=== PATIENT | male | born 1955 | race Two or more races ===

== ENCOUNTER 2023-11-24 06:27 | Day surgery (SDC) | payer BC, SELFPAY ==
[2023-11-11 10:13] VITALS: BMI 29.1
[2023-11-11 10:59] LABS: Hematocrit 45.9 % (39.0-52.0); Hemoglobin 16.1 g/dL (13.0-18.0); Mean Corp Hgb Conc. 35.1 g/dL (33.0-37.0); Mean Corpuscular Volume 91.3 fL (80.0-94.0); Mean Platelet Volume 10.9 fL (7.4-10.4); Platelet Count 168 10^3/uL (130-400); Red Blood Cell Count 5.03 10^6/uL (4.70-6.10); Red Cell Dist. Width 12.4 % (11.5-14.5); White Blood Cell Count 5.9 10^3/uL (4.8-10.8)
[2023-11-11 11:23] LABS: Blood Urea Nitrogen 23 mg/dl (9-20); Calcium 9.6 mg/dl (8.4-10.2); Carbon Dioxide 32 mmol/L (22-30); Chloride 103 mmol/L (98-107); Estimated Creatinine Clearance 104 ml/min; Glucose 82 mg/dl (70-99); Sodium 138 mmol/L (135-145); eGFR > 60.00
[2023-11-24] VITALS (8 sets, daily range): BP systolic 108–121; BP diastolic 65–75; BMI 29.1
[2023-11-24] MEDS: TYLENOL 1000 MG PO (08:31)
[2023-11-24] MEDS: NORMOSOL-R 1000 IV (08:37)
[2023-11-24] MEDS: VANCOCIN 300 MG IV (09:47)
[2023-11-24] MEDS: VANCOCIN 300 ML IV (09:47)
== END 2023-11-24 14:37 | disposition home or self-care (01) ==
LOC: SDS 06:27
PROVIDERS: ATTENDING PHYSICIAN Surgery; FAMILY PHYSICIAN Family Medicine
DX: K40.30 Unilateral inguinal hernia, with obstruction, without gangrene, not specified as recurrent (principal); Z98.890 Other specified postprocedural states
CPT/HCPCS: 49650; 36415; 80048; 85027; 93005; C1781

== ENCOUNTER → 2024-05-10 14:52 | Outpatient (REF) | payer BC, SELFPAY | LOC: HWEVLT 14:52 | PROVIDERS: ATTENDING PHYSICIAN Radiology Vascular & Interventional Radiology | DX: I83.893 Varicose veins of bilateral lower extremities with other complications (principal) | CPT/HCPCS: 93970 ==

== ENCOUNTER → 2024-06-21 09:34 | Outpatient (REF) | payer BC, SELFPAY | LOC: HWEVLT 09:34 | PROVIDERS: ATTENDING PHYSICIAN Radiology Diagnostic Radiology | DX: I83.892 Varicose veins of left lower extremity with other complications (principal) | CPT/HCPCS: 36478; C1769 ==

== ENCOUNTER → 2024-07-04 14:44 | Outpatient (REF) | payer BC, SELFPAY | LOC: HWEVLT 14:44 | PROVIDERS: ATTENDING PHYSICIAN Radiology Vascular & Interventional Radiology | DX: I83.892 Varicose veins of left lower extremity with other complications (principal) | CPT/HCPCS: 93971 ==

== ENCOUNTER → 2024-07-12 09:12 | Outpatient (REF) | payer BC, SELFPAY | LOC: HWEVLT 09:12 | PROVIDERS: ATTENDING PHYSICIAN Radiology Vascular & Interventional Radiology | DX: I83.891 Varicose veins of right lower extremity with other complications (principal) | CPT/HCPCS: 36478 ==

== ENCOUNTER → 2024-07-26 10:50 | Outpatient (REF) | payer BC, SELFPAY | LOC: HWEVLT 10:50 | PROVIDERS: ATTENDING PHYSICIAN Radiology Diagnostic Radiology | DX: I83.891 Varicose veins of right lower extremity with other complications (principal) | CPT/HCPCS: 93971 ==

== ENCOUNTER 2025-02-12 06:02 | Day surgery (SDC) | payer BC, SELFPAY ==
[2025-02-12] VITALS (9 sets, daily range): BP systolic 112–124; BP diastolic 73–84; BMI 28.4
[2025-02-12] MEDS: NORMOSOL-R/PLASMALYTE-A 1000 IV (07:07)
== END 2025-02-12 10:20 | disposition home or self-care (01) ==
LOC: SDS 06:02
PROVIDERS: ATTENDING PHYSICIAN Otolaryngology
DX: J34.2 Deviated nasal septum (principal); Z88.9 Allergy status to unspecified drugs, medicaments and biological substances
CPT/HCPCS: 30520